=== PATIENT | male | born 1965 | race African-American/Black ===

== ENCOUNTER 2019-02-03 06:56 | Emergency (ER) | payer MEDICARE, OTHER ==
[~2019-02-03] VITALS: Ht 175.3 cm; Wt 122.8 kg
[~2019-02-03 06:56] MED LIST: AMLO10TA80 PO; ASPI-1158 PO; CARV25TA47 PO; COLC0.6T66 PO; FEBU80TA PO; FURO-151 PO; HYDR100T26 PO; INSLAN SQ; ISOS40TA17 PO; KDUR10 PO; ZOLP5TAB8 PO
[2019-02-03 07:24] LABS: HEMATOCRIT. 36.6 % (42.0-52.0); HEMOGLOBIN. 11.8 g/dL (14.0-18.0); MEAN CORPUSCULAR HEMOGLOBIN 28.4 pg (28.0-32.0); MEAN CORPUSCULAR VOLUME 88.2 fL (80.0-94.0); MEAN PLATELET VOLUME 8.5 fl (7.4-10.4); PLATELET 216 x1000/uL (130-400); RED BLOOD CELL COUNT 4.15 mill/uL (4.7-6.1); RED CELL DISTRIBUTION WIDTH 16.3 % (11.6-14.6)
[2019-02-03 07:31] LABS: CHLORIDE 99 mEq/L (98-107)
[2019-02-03 07:35] LABS: ETHANOL BLOOD < 10 mg/dL
[2019-02-03 08:05] LABS: PLATELET ESTIMATE NORMAL
[2019-02-03 10:37] VITALS: BP 161/68
== END 2019-02-03 10:45 | disposition left against medical advice (07) ==
LOC: ER 06:59 → ENRESERV 10:08 → CANRESERV 10:08 → EDBEDREQ 10:25 → EDBEDREQTM 10:25 → ER 10:45 → CANBEDREQ 15:48
DX: G45.9 Transient cerebral ischemic attack, unspecified (principal); I11.0 Hypertensive heart disease with heart failure; I50.9 Heart failure, unspecified; E11.9 Type 2 diabetes mellitus without complications; I25.2 Old myocardial infarction; Z95.0 Presence of cardiac pacemaker; Z79.4 Long term (current) use of insulin; Z79.899 Other long term (current) drug therapy; Z88.6 Allergy status to analgesic agent; Z88.5 Allergy status to narcotic agent; Z98.890 Other specified postprocedural states
CPT/HCPCS: 36415; 71045; 80320; 84484; 93005; 99284; G0480

== ENCOUNTER 2019-08-22 05:30 | Emergency (ER) | payer MEDICARE, MEDICAID, OTHER ==
[~2019-08-22] VITALS: Ht 182.9 cm; Wt 109.0 kg
[2019-08-22 05:36] VITALS: BP 147/74
== END 2019-08-22 07:49 | disposition left against medical advice (07) ==
LOC: ER 05:30 → CANBEDREQ 08:55
DX: A41.9 Sepsis, unspecified organism (principal); I13.2 Hypertensive heart and chronic kidney disease with heart failure and with stage 5 chronic kidney disease, or end stage renal disease; I50.9 Heart failure, unspecified; I25.2 Old myocardial infarction; E11.22 Type 2 diabetes mellitus with diabetic chronic kidney disease; N18.6 End stage renal disease; Z79.4 Long term (current) use of insulin; Z95.0 Presence of cardiac pacemaker; Z99.2 Dependence on renal dialysis; Z79.82 Long term (current) use of aspirin
CPT/HCPCS: 99283